=== PATIENT | female | born 2000 | race Hispanic/Latino ===

== ENCOUNTER 2019-12-18 09:58 | Observation (INO) | payer MEDICAID ==
[~2019-12-18] VITALS: Ht 160 cm; Wt 90.7 kg
[~2019-12-18 09:58] MED LIST: IBUP-2070 PO; PREN-64 PO
[2019-12-18 10:18] VITALS: BP 129/73
[2019-12-18 10:30] LABS: APPEARANCE,URINE Clear (CLEAR); BILIRUBIN,URINE Negative (NEGATIVE); COLOR,URINE Yellow (YELLOW); GLUCOSE, URINE (UA) Negative (NEGATIVE); KETONES,URINE Negative (NEGATIVE); LEUKOCYTE ESTERASE ,URINE Small (NEGATIVE); NITRATE,URINE Positive (NEGATIVE); OCCULT BLOOD,URINE Large (NEGATIVE); PROTEIN,URINE POS 2+ mg/dL (NEGATIVE); UROBILINOGEN,URINE 0.2 mg/dL (0.2-1.0)
[2019-12-18 10:42] LABS: BACTERIA,URINE Few /HPF (None Seen)
[2019-12-18] MEDS ORDERED: LACTATED RINGERS 1000ML 1,000 ML IV SCH (10:45)
== END 2019-12-18 12:00 | disposition home or self-care (01) ==
LOC: EDH 09:58 → LDH 09:59
PROVIDERS: ADMIT Obstetrics & Gynecology; ATTEND Obstetrics & Gynecology
DX: O26.893 Other specified pregnancy related conditions, third trimester (principal); M54.5 Low back pain; Z3A.29 29 weeks gestation of pregnancy
CPT/HCPCS: 81001; 87088; 96360; 99284; G0378 ×2; J7120

== ENCOUNTER 2022-03-20 17:47 | Emergency (ER) | payer OTHER, MEDICAID ==
[~2022-03-20] VITALS: Ht 160 cm; Wt 83.0 kg
[~2022-03-20 17:47] MED LIST changes: -IBUP-2070 PO
[2022-03-20 18:09] LABS: BASOPHILS % (AUTO) 0.3 % (0.0-5.0); HEMATOCRIT 36.9 % (36-48); LYMPHOCYTES % (AUTO) 21.9 % (21.0-51.0); MEAN CORPUSCULAR HEMOGLOBIN 28.2 pg (27.0-33.0); MEAN CORPUSCULAR HGB CONC 33.3 g/dL (32.0-36.0); MEAN CORPUSCULAR VOLUME 84.6 fL (79-99); MONOCYTES % (AUTO) 7.6 % (3.0-13.0); NEUTROPHILS % (AUTO) 68.9 % (40.0-77.0); PLATELET COUNT (AUTO) 326 K/uL (130-400); RED BLOOD CELL COUNT(AUTO) 4.36 MIL/uL (4.00-5.50); RED CELL DISTRIBUTION WIDTH 12.3 % (11.0-15.5); WHITE BLOOD COUNT (AUTO) 10.8 K/uL (4.8-10.8)
[2022-03-20 18:18] LABS: CREATININE 0.6 mg/dL (0.5-1.5)
[2022-03-20 18:22] LABS: ALBUMIN 3.5 g/dL (3.5-5.0); TOTAL PROTEIN, SERUM 7.7 g/dL (6.0-8.3)
[2022-03-20 18:28] LABS: HCG,QUALITATIVE URINE NEGATIVE (NEGATIVE)
[2022-03-20 18:29] LABS: APPEARANCE,URINE CLEAR (CLEAR); BILIRUBIN,URINE NEGATIVE (NEGATIVE); COLOR,URINE LIGHT-YELLOW (YELLOW); GLUCOSE, URINE (UA) NEGATIVE (NEGATIVE); KETONES,URINE 10 mg/dL (NEGATIVE); LEUKOCYTE ESTERASE ,URINE NEGATIVE Leu/uL (NEGATIVE); NITRATE,URINE NEGATIVE (NEGATIVE); OCCULT BLOOD,URINE SMALL (NEGATIVE); PROTEIN,URINE NEGATIVE (NEGATIVE); UROBILINOGEN,URINE 0.2 mg/dL (0.2-1.0)
[2022-03-20 18:31] LABS: MUCUS,URINE RARE LPF (None Seen); SQUAMOUS EPITHELIAL CELL,UR RARE /HPF (0-2); WBC,URINE 0-1 /HPF (0-1)
[2022-03-20] MEDS ORDERED: ONDANSETRON 4MG INJ IVP ONE (19:00)
[2022-03-20] MEDS ORDERED: MORPHINE 2 MG SYG IVP ONE (19:00)
[2022-03-20] MEDS ORDERED: DICY20TA2 PO (19:16)
[2022-03-20 19:30] VITALS: BP 128/88
[2022-03-20] MEDS ORDERED: DICYCLOMINE HCL 20 MG TAB ONE (19:46)
[2022-03-20] MEDS ORDERED: DICYCLOMINE HCL 10 MG/5 ML ML PO SCH (20:00)
== END 2022-03-20 19:56 | disposition home or self-care (01) ==
LOC: EDH 17:47
DX: R10.31 Right lower quadrant pain (principal); E66.9 Obesity, unspecified; Z68.32 Body mass index [BMI] 32.0-32.9, adult; Z79.899 Other long term (current) drug therapy
CPT/HCPCS: 99284; 74176; 96374; 96375; 80053; 85025; 86140; 81001; 81025; 36415; J2405